=== PATIENT | male | born 2000 | race African-American/Black ===

== ENCOUNTER 2019-11-04 00:36 | Emergency (ER) | payer OTHER ==
[~2019-11-04] VITALS: Ht 185.4 cm; Wt 77.1 kg
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
--- NOTE | 2019-11-04 03:50 | NUR ---
Patient discharged to home in stable condition. Rx and Written and verbal after care instructions given to the sister and the father who verbalized understanding of instruction. pt was picked up by the father,
[2019-11-04 03:54] VITALS: BP 148/88
== END 2019-11-04 03:54 | disposition home or self-care (01) ==
LOC: ER 00:39
DX: S60.512A Abrasion of left hand, initial encounter (principal); S60.511A Abrasion of right hand, initial encounter; S00.81XA Abrasion of other part of head, initial encounter; S00.511A Abrasion of lip, initial encounter; S00.212A Abrasion of left eyelid and periocular area, initial encounter; F19.10 Other psychoactive substance abuse, uncomplicated; R51 Headache; F17.200 Nicotine dependence, unspecified, uncomplicated; W19.XXXA Unspecified fall, initial encounter; Y93.89 Activity, other specified; Y92.89 Other specified places as the place of occurrence of the external cause; Y99.8 Other external cause status
CPT/HCPCS: 70450-TC; 70486-TC; 72125-TC; 73130-TC